=== PATIENT | male | born 1995 | race Caucasian/White ===

== ENCOUNTER 2018-04-10 21:07 | Emergency (ER) | payer OTHER, MEDICAID, SELFPAY ==
--- NOTE | 2018-04-10 21:09 | ED.GENADULT ---
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 States that he was at a long-term facility earlier today but had to leave because he started to go through withdrawals. He stated that the facility that he was located at said that they could not treat him while he was withdrawing but that they will treat him after he has gone through this process. He is here with his mother. He states that he did leave the facility. He did use heroin after leaving the facility. His last use was 4 hr prior to arrival here in the emergency department. He denied any other drug abuse. Related Data Allergies Allergy/AdvReac Type Severity Reaction Status Date / Time No Known Drug Allergies Allergy Verified 04/10/18 21:31 Review of Systems Constitutional Denies headache(s) and Reports malaise ENT Ears, Nose, Mouth, and Throat: Denies dizziness and Denies headache(s) Cardiovascular Denies chest pain and Denies dyspnea Respiratory Denies dyspnea Gastrointestinal Gastrointestinal: Denies abdominal pain Genitourinary Denies dysuria Musculoskeletal Denies myalgias and Denies arthralgias Integumentary/Breasts Denies rash Neurologic Denies dizziness and Denies headache(s) Psychiatric Denies visual hallucinations, Denies tactile hallucinations, Denies homicidal ideation and Denies suicidal ideation Hematologic/Lymphatic Comments: Not on anticoagulation PFSH Medical History Drug abuse (Acute) Surgical History No pertinent past surgical history (Acute) Social History Smoking Status: Current every day smoker Exam Initial Vital Signs Initial Vital Signs: Vital Signs Temperature 97.8 F 04/10/18 21:16 Pulse Rate 99 H 04/10/18 21:16 Respiratory Rate 18 04/10/18 21:16 Blood Pressure 130/70 04/10/18 21:16 Pulse Oximetry 99 04/10/18 21:16 Const General: cooperative, comfortable, well developed, well groomed and No acute distress Orientation: alert, awake and oriented x3 HENMT Head: normal to inspection and normocephalic Resp Effort & Inspection: normal respiratory effort Auscultation: clear to auscultation bilaterally Cardio Rate: regular rate Rhythm: regular rhythm Skin Lesions: no lesions Rashes: no rashes Neuro General: alert, awake and oriented x3 Extrem General: normal to inspection and capillary refill normal Psych Appearance: grossly normal and well kempt Course Orders Ordered: ED Orders 04/10/18 21:22 Urine Drug Screen, Rapid Stat 04/10/18 21:58 Acetaminophen Stat Complete Blood Count AUTO DIFF Stat Comprehensive Metabolic Panel Stat Ethanol (ETOH) Stat Salicylate Stat Vital Signs - 8 hr 04/10/18 21:16 04/10/18 23:03 Temperature 97.8 F Pulse Rate 99 H 82 Respiratory Rate 18 16 Blood Pressure 130/70 Blood Pressure [Left Arm] 117/65 Pulse Oximetry 99 99 Medical Decision Making Lab Data Lab results reviewed: Yes I reviewed the patient's lab results. Result diagrams: 04/10/18 21:58 04/10/18 21:58 Lab Results 04/10/18 04/10/18 04/10/18 Range/Units 21:58 21:58 21:58 WBC 7.3 (4.5-11.0) X10^3/uL RBC 4.10 L (4.5-5.9) X10^6/uL Hgb 13.1 L (13.5-17.5) g/dL Hct 38.4 L (41-53) % MCV 93.7 (80-100) fL MCH 32.0 (26-34) PG MCHC 34.2 (30-36) % RDW 12.5 (11.6-14.8) % Plt Count 337 (150-400) X10^3/uL Neut % (Auto) 59.6 (50-75) % Lymph % (Auto) 29.7 (25-40) % [place] % (Auto) 10.0 (3-14) % Eos % (Auto) 0.5 L (2-4) % Baso % (Auto) 0.2 (0-2) % Neut # (Auto) 4300 (8429-1342) /uL Sodium 144 (137-145) mmol/L Potassium 3.7 (3.4-5.1) mmol/L Chloride 103 (98-107) mmol/L Carbon Dioxide 25 (22-32) mmol/L BUN 8 L (9-20) mg/dL Creatinine 0.60 L (0.66-1.25) mg/dL Estimated GFR > 60.0 (>60) mL/min BUN/Creatinine Ratio 13.3 (6-22) Glucose 90 (70-100) mg/dL Calcium 9.2 (8.4-10.2) mg/dL Total Bilirubin 0.2 (0.2-1.3) mg/dL AST 20 (17-59) IU/L ALT 33 (21-72) IU/L Alkaline Phosphatase 61 (38-126) U/L Total Protein 7.5 (6.3-8.2) g/dL Albumin 4.4 (3.5-5.0) g/dL Globulin 3.1 (1.7-4.1) g/dL Albumin/Globulin Ratio 1.4 (1.0-2.8) Salicylates < 1.0 (<20) mg/dL Acetaminophen < 10 L (10-30) ug/mL Ethyl Alcohol < 10 mg/dL MDM Narrative Medical decision making narrative: Patient was cooperative. His medically cleared. Admitted to smoking heroin 4 hr prior to arrival here in the emergency department. Upon our initial attempt to find placement in a detox facility we ended up contacting the facility where he just left earlier today. This was the [facility]. That facility recognize the patient's name and looked him up. They stated that he left against medical advice earlier today. They stated that they did have a detox bed available for hip. We discussed this with the patient and his mom who is at bedside. He contacted the facility and did a phone interview and they told him that they would have a bed for him in the morning. The mother stated that she felt comfortable taking the patient home. The patient felt comfortable going home. They already know where this facility is located. They were informed that they could return to the emergency department any time. Discharge Plan Departure Patient Disposition: Home Clinical Impression: Drug abuse Instructions: DI for Drug Abuse and Drug Addiction Activity Restrictions/Additional Instructions: Further recommendations your to report back to the [facility] tomorrow morning. I recommend that you do not partake in any intoxicating substances prior to this. No driving for the next 24 hr. May return to the emergency department at any time for new or worsening symptoms
[2018-04-10 21:16] VITALS: BP 130/70; PULSE 99; RESP 18; TEMP 36.6; O2SAT 99
[2018-04-10 22:06] LABS: Add Manual Diff / Slide Review NO; Basophils Percent Auto 0.2 % (0-2); Eosinophils Percent Auto 0.5 % (2-4); Hematocrit 38.4 % (41-53); Hemoglobin 13.1 g/dL (13.5-17.5); Lymphocytes Percent Auto 29.7 % (25-40); Mean Corpuscular HGB Conc 34.2 % (30-36); Mean Corpuscular Volume 93.7 fL (80-100); Neutrophils Absolute Auto 4300 /uL (3000-5900); Neutrophils Percent Auto 59.6 % (50-75); Platelet Count 337 X10^3/uL (150-400); Red Cell Distribution Width 12.5 % (11.6-14.8); White Blood Cell Count 7.3 X10^3/uL (4.5-11.0)
[2018-04-10 22:15] LABS: Acetaminophen < 10 ug/mL (10-30); Ethanol (ETOH) < 10 mg/dL
[2018-04-10 22:16] LABS: Alanine Aminotransferase 33 IU/L (21-72); Albumin 4.4 g/dL (3.5-5.0); Albumin Globulin Ratio 1.4 (1.0-2.8); Alkaline Phosphatase 61 U/L (38-126); Aspartate Aminotransferase 20 IU/L (17-59); BUN Creatinine Ratio 13.3 (6-22); Bilirubin Total 0.2 mg/dL (0.2-1.3); Blood Urea Nitrogen 8 mg/dL (9-20); Calcium 9.2 mg/dL (8.4-10.2); Carbon Dioxide 25 mmol/L (22-32); Chloride 103 mmol/L (98-107); Estimated Glomerular Filt Rate > 60.0 mL/min (>60); Globulin 3.1 g/dL (1.7-4.1); Glucose 90 mg/dL (70-100); HEMOLYSIS < 15 (0-50); Potassium 3.7 mmol/L (3.4-5.1); Sodium 144 mmol/L (137-145); Total Protein 7.5 g/dL (6.3-8.2)
[2018-04-10 22:17] LABS: Salicylate < 1.0 mg/dL (<20)
[2018-04-10 23:03] VITALS: BP 117/65; PULSE 82; RESP 16; O2SAT 99
[2018-04-10 23:39] VITALS: BP 130/72; PULSE 72; RESP 18; O2SAT 98
--- NOTE | 2018-04-10 23:40 | PC.NURSE ---
He did phone survey with [facility].Has a bed for de-tox. in am.Will stay with his mother miladis.Both said he is safe there and will go to rehab center in am as scheduled.
== END 2018-04-10 23:40 | disposition home or self-care (01) ==
PROVIDERS: Emergency Provider Emergency Medicine
DX: F11.10 Opioid abuse, uncomplicated (principal)
CPT/HCPCS: 36415; 80053; 80320; 80329; 85025; 99282; 99283; G0480